=== PATIENT | male | born 1945 | race Caucasian/White ===

== ENCOUNTER 2019-04-22 15:01 | Outpatient (CLI) | payer MEDICARE, MEDICAID | END 2019-04-22 15:02 | disposition critical access hospital (66) | LOC: EMS 15:01 | PROVIDERS: ATTEND Surgery | DX: M54.9 Dorsalgia, unspecified (principal) ==

== ENCOUNTER 2019-04-22 15:10 | Emergency (ER) | payer MEDICARE, MEDICAID ==
--- NOTE | 2019-04-22 15:16 | ED Physician Documentation ---
History of Present Illness - Stated complaint Stated Complaint: BACK PX - Additonal information Additional information: This is a 74-year-old male with advanced COPD on oxygen via cannula at baseline at home who presents with back pain. Patient's pain began around 1 week ago he tried treating it with [id number] analgesics and this did not help, so he tried some tramadol which apparently was called in by his doctor, and this also was not effective. He found some Vicodin from when he had dental pain in the past and this was minimally helpful. States that the pain has improved minimally in the last 24, as he can now roll around where his previous he had to lay still, but he is unable to walk for more than a step or two due to pain. He called EMS today, EMS arrived and found him living in trailer in poor repair with holes in the floor, and no food in the trailer. Reportedly his friends bring him some food but he is very poorly mobile and there is COPD cannot get outside so he stays inside. He has pain with movement of his legs, but denies numbness or ami weakness in them. He has felt a bit constipated but denies any difficulty urinating Review of Systems Constitutional: denies: Fever Cardiac: denies: Chest pain / pressure Respiratory: reports: Other (COPD) : denies: Dysuria Musculoskeletal: reports: Back pain PD PAST MEDICAL HISTORY - Past Medical History Cardiovascular: None Respiratory: COPD Endocrine/Autoimmune: None GI: GERD, Chronic constipation, Diverticulitis : None HEENT: Other Psych: None Musculoskeletal: Osteoarthritis Derm: Other - Past Surgical History Past Surgical History: Yes HEENT: Tonsil/Adenoidectomy Derm: Skin grafts - Present Medications Home Medications: Ambulatory Orders Medication Instructions Recorded Confirmed Docusate Sodium 100Mg Capsule 100 mg PO ONCE 05/26/15 05/26/15 [Colace] Fluticasone/Salmeterol 100/50 1 each IH DAILY 05/26/15 06/05/15 [Advair 100 Mcg/50 Mcg] Polyethylene Glycol 3350 [Miralax] 17 gm PO DAILY 05/26/15 05/26/15 - Allergies Allergies/Adverse Reactions: Allergies Allergy/AdvReac Type Severity Reaction Status Date / Time iodine Allergy Unknown Verified 04/22/19 15:25 - Social History Does the pt smoke?: Yes Smoking Status: Current every day smoker Does the pt drink ETOH?: No Does the pt have substance abuse?: Yes - Immunizations Immunizations are current?: Yes - POLST Patient has POLST: No PD ED PE NORMAL - General General: Other (Obese and chronically ill-appearing male, with some tachypnea and chronic erythema of his face) - HEENT HEENT: Atraumatic - Neck Neck: Supple, no meningeal sign - Cardiac Cardiac: RRR - Respiratory Respiratory: Other (Diminished breath sounds throughout, Pursed lip breathing. No crackles.) - Abdomen Abdomen: Other (Obese, nontender To deep palpation all 4 quadrants) - Back Back: Other (There is midline tenderness palpation focally and in the region of L4-L5. No step-offs, no overlying skin changes. Patient has good range of motion of his bilateral lower extremities, 5 out of 5 strength ankle dorsiflexion and plantarflexion bilaterally, sensation intact to light touch over his lower extremities) - Neuro Neuro: Alert and oriented X 3, No motor deficit, No sensory deficit, Normal speech Results - Vitals Vitals: Oxygen O2 Source Nasal cannula - Labs Labs: Laboratory Tests 04/22/19 04/22/19 16:20 16:20 WBC 7.9 RBC 6.52 H Hgb 18.6 H Hct 57.4 H MCV 88.0 MCH 28.5 MCHC 32.4 RDW 17.6 H Plt Count 167 MPV 9.0 Neut # (Auto) 5.3 Lymph # (Auto) 1.3 L [place] # (Auto) 1.0 Eos # (Auto) 0.2 Baso # (Auto) 0.1 Absolute Nucleated RBC 0.00 Nucleated RBC % 0.0 Sodium 135 Potassium 4.1 Chloride 94 L Carbon Dioxide 31 Anion Gap 10.0 BUN 21 H Creatinine 0.9 Estimated GFR (MDRD) 82 L Glucose 101 H Calcium 9.0 Total Bilirubin 0.9 AST 17 ALT 15 Alkaline Phosphatase 54 Total Protein 6.7 Albumin 3.7 Globulin 3.0 Albumin/Globulin Ratio 1.2 Lipase 26 - Rads (name of study) CT lumbar spine WO Radiology: Other (New gas densities in the lateral left epidural space at L3-L5, with extension of the gas densities into the left foraminal space at L3-L4 and L4-L5, which may be within a vessel. Radiology read raises concern for gas through an IV, injection into the space, or infection, though there are not obvious inflammatory changes seen. MRI recommended as deemed clinically appropriate. 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 No signs of AAA. He has no history of recent instrumentation, and prior to having the scan done he did not have an IV. According to radiology, epidural abscess is in the differential, though there were not obvious signs of inflammation seen, the patient is chronically ill and may be somewhat immunosuppressed. IV was inserted labs are drawn, CBC and CMP revealing. Patient is afebrile. MRI L spine W/WO was ordered, however patient cannot fit in our MRI scanner. I called to other regional emergency departments, and [facility] also does not have the capabilities to fit patient into their scanner. [facility] [place], and confirm with the mapping technician that he will be able to fit in the scanner, patient is 345 pounds, and at his widest point including his arms he is just under 30 inches. Patient was updated and is in agreement the plan. He will be transferred via ambulance to the [place] emergency department for MRI. I did consult social work because patient is poorly mobile and limited by his COPD and reportedly does not have food available to him in is trailer other than what his friends bring him.SW they provided resources and social work called to arrange Meals on Wheels for the patient and to ensure that he has support. Departure - Departure Disposition: 02 Transfer Acute Care Hosp Clinical Impression: Back pain Qualifiers: Back pain location: low back pain Chronicity: acute Back pain laterality: midline Sciatica presence: without sciatica Qualified Code(s): M54.5 - Low back pain Condition: Stable Discharge Date/Time: 04/22/19 21:04
[2019-04-22] MEDS ORDERED: oxyCODONE 5 MG TABLET PO STA (15:36)
[2019-04-22] MEDS ORDERED: ACETAMINOPHEN 325 MG TABLET PO STA (15:36)
[2019-04-22] MEDS ORDERED: CYCLOBENZAPRINE 10 MG TABLET PO STA (15:36)
[2019-04-22 16:37] LABS: BASOPHILS # (AUTO) 0.1 10^3/uL (0.0-0.1); BASOPHILS % (AUTO) 1.1 %; EOSINOPHILS # (AUTO) 0.2 10^3/uL (0.0-0.7); EOSINOPHILS % (AUTO) 2.3 %; HGB - HEMOGLOBIN 18.6 g/dL (14.0-18.0); LYMPHOCYTES # (AUTO) 1.3 10^3/uL (1.5-3.5); LYMPHOCYTES % (AUTO) 16.4 %; MEAN CORPUSCULAR HEMOGLOBIN 28.5 pg (27.0-31.0); MEAN CORPUSCULAR HGB CONC 32.4 g/dL (32.0-36.0); MONOCYTES % (AUTO) 12.1 %; NEUTROPHILS # (AUTO) 5.3 10^3/uL (1.5-6.6); NEUTROPHILS % (AUTO) 67.3 %; PLT - PLATELET COUNT 167 10^3/uL (130-450); RED BLOOD COUNT 6.52 10^6/uL (4.70-6.10); RED CELL DISTRIBUTION WIDTH 17.6 % (12.0-15.0); WHITE BLOOD COUNT 7.9 x10^3/uL (4.8-10.8)
[2019-04-22 16:50] LABS: ALBUMIN 3.7 g/dL (3.2-5.5); ALBUMIN/GLOBULIN RATIO 1.2 (1.0-2.2); BILIRUBIN,TOTAL 0.9 mg/dL (0.2-1.0); CREATININE 0.9 mg/dL (0.6-1.2); TOTAL PROTEIN 6.7 g/dL (6.7-8.2)
--- NOTE | 2019-04-22 16:52 | CT Report ---
Reason: Severe lower back pain Procedure Date: 04/22/2019 Accession Number: [id number] / [id number] Procedure: CT - LUMBAR SPINE WO CPT Code: Final Report FULL RESULT: EXAM: CT LUMBAR SPINE WITHOUT CONTRAST EXAM DATE: 04/22/2019 03:52 PM. CLINICAL HISTORY: Severe lower back pain. Low back pain for 1 week. No known trauma. COMPARISONS: CT ABDOMEN/PELVIS W/O 08/21/2013 9:03 AM. TECHNIQUE: Thin-section axial images were acquired of the lumbar spine from T12 to S1 without contrast. Post-processing: Coronal and sagittal reformats. Other: None. In accordance with CT protocol optimization, one or more of the following dose reduction techniques were utilized for this exam: automated exposure control, adjustment of mA and/or KV based on patient size, or use of iterative reconstructive technique. FINDINGS: Without the use of intrathecal contrast, the evaluation of the degree of central and foraminal stenosis is somewhat limited. There is a grade 1 anterolisthesis of L5 on S1 secondary to bilateral pars interarticularis defects of L5. There is gas disk vacuum phenomenon demonstrated within the L5-S1 intervertebral disk space. There is extension of gas densities within the anterior left lateral epidural space from L3 through L4-L5. There is a lesser degree within the right lateral recess at the L4-L5 level. There were no gas densities present at this location on the previous CT of the abdomen and pelvis. There is extension of the gas densities into the left foraminal space at L4-L5 and L3-L4. Recommend correlation for any recent facet or foraminal injection. This could potentially represent gas within a vessel that was introduced with placement of an IV. There is minimal atelectasis demonstrated at the lung bases. There is mild calcific plaquing of the abdominal aorta and the proximal common iliac arteries. There is moderate left and mild to moderate right paraspinal atrophy. Overall there has been significant progression of the atrophy since the 2013 exam. The kidneys are without evidence of hydronephrosis. There is a 13 degree levoscoliosis of the lumbar spine with the apex at L3. The sacroiliac joints are normal in appearance. Axial images: T10-T11: There is no significant disk bulge, central or foraminal stenosis. The facets are normal. T11-T12: There is no significant disk bulge, central or foraminal stenosis. The facets are normal. T12-L1: There is no significant disk bulge, central or foraminal stenosis. The facets are normal. L1-L2: There is a left foraminal space protrusion of the disk producing mild narrowing of the left neural foramen. There is no significant central canal stenosis. L2-L3: There is a left foraminal space protrusion of the disk producing a mild left foraminal stenosis. There is no significant central canal stenosis. The facets are normal. L3-L4: There is a small disk osteophyte complex producing a mild central canal stenosis. There is moderate narrowing of the right neural foramen. There is mild narrowing of the left neural foramen. There is no significant change at this level. L4-L5: There is a broad-based disk osteophyte complex producing a mild central canal stenosis. There is mild to moderate narrowing of the right neural foramen. The facets are normal. There is moderate narrowing of the left neural foramen. There is no significant change at this level. L5-S1: There is a grade 1 anterolisthesis of L5 on S1. There are bilateral pars interarticularis defects of L5. There is a small disk osteophyte complex suggested abutting the sac without significant central canal stenosis. There are moderate to severe right and left foraminal stenoses. Recommend correlation for L5 radicular symptoms. There is no significant change at this level. IMPRESSION: 1. There are new gas densities demonstrated in the lateral left epidural space at the L3-L5 levels. There is extension of the gas densities into the left foraminal space at L3-L4 and L4-L5. These may potentially be within a vessel and were introduced with placement of an IV. Other etiologies which could produce gas densities at this location would include recent injection of either facet or foraminal space. Recommend correlation for any such history. A gas producing organism is not entirely excluded but overall less likely given the lack of significant inflammatory or infectious changes. However, if clinically there is suspicion of infection of the lumbar spine then further evaluation can be obtained with MRI of the lumbar spine without and with contrast as deemed clinically appropriate. 2. There is an unchanged mild central canal stenosis from a broad-based disk osteophyte complex at L4-L5. There is mild to moderate right and moderate left foraminal stenoses. 3. There are bilateral pars interarticularis defects of L5. There is a grade 1 anterolisthesis of L5 on S1. There is an unchanged moderate to severe degree of bilateral foraminal stenoses which may potentially produce L5 radicular symptoms. 4. There is a 13 degree levoscoliosis of the lumbar spine with the apex at L3.
[2019-04-22] MEDS ORDERED: MORPHINE 2 MG/ML CARPUJECT IVP STA ×2 (17:44→20:48)
[2019-04-22] MEDS ORDERED: ALBUTEROL NEB 2.5 MG/3 ML INH STA (17:44)
[2019-04-22 20:54] VITALS: BP 138/101
== END 2019-04-22 21:04 | disposition short-term general hospital (02) ==
LOC: EDUNIT# → ED 15:10
DX: M54.5 Low back pain (principal); M48.061 Spinal stenosis, lumbar region without neurogenic claudication; M41.86 Other forms of scoliosis, lumbar region; E66.9 Obesity, unspecified; Z68.42 Body mass index [BMI] 45.0-49.9, adult; J44.9 Chronic obstructive pulmonary disease, unspecified; Z99.81 Dependence on supplemental oxygen; F17.200 Nicotine dependence, unspecified, uncomplicated
CPT/HCPCS: 36415; 72131; 80053; 83690; 85025; 96374; 96376; 99284; 99285; A9270

== ENCOUNTER 2019-04-22 22:23 | Outpatient (CLI) | payer MEDICARE, MEDICAID | END 2019-04-22 22:24 | disposition short-term general hospital (02) | LOC: EMS 22:23 | PROVIDERS: ATTEND Surgery | DX: M54.5 Low back pain (principal); R93.89 Abnormal findings on diagnostic imaging of other specified body structures | CPT/HCPCS: A0425; A0428; A0429 ==

== ENCOUNTER 2019-05-02 12:56 | Outpatient (CLI) | payer MEDICARE, MEDICAID | END 2019-05-02 12:57 | disposition EMS.NT | LOC: EMS 12:56 | PROVIDERS: ATTEND Surgery | DX: M54.9 Dorsalgia, unspecified (principal) ==

== ENCOUNTER 2019-05-02 17:26 | Outpatient (CLI) | payer MEDICARE, MEDICAID | END 2019-05-02 17:27 | disposition EMS.NT | LOC: EMS 17:26 | PROVIDERS: ATTEND Surgery | DX: R06.02 Shortness of breath (principal); F32.9 Major depressive disorder, single episode, unspecified ==

== ENCOUNTER 2020-01-14 16:45 | Outpatient (CLI) | payer MEDICARE, MEDICAID | END 2020-01-14 16:46 | disposition home or self-care (01) | LOC: COV 16:45 | PROVIDERS: ATTEND Family Medicine | DX: R05 Cough (principal); R06.02 Shortness of breath; M79.10 Myalgia, unspecified site; R53.83 Other fatigue; J02.9 Acute pharyngitis, unspecified; R09.81 Nasal congestion; Z20.828 Contact with and (suspected) exposure to other viral communicable diseases ==

== ENCOUNTER 2020-06-24 09:31 | Outpatient (CLI) | payer MEDICARE, MEDICAID | END 2020-06-24 09:32 | disposition EMS.NT | LOC: EMS 09:31 | PROVIDERS: ATTEND Surgery | DX: R06.02 Shortness of breath (principal) ==

== ENCOUNTER 2022-04-08 09:43 | Emergency (ER) | payer MEDICARE, MEDICAID ==
[2022-04-08] MEDS ORDERED: IPRATROPIUM/ALBUTEROL 3 ML NEB INH STA (10:21)
--- NOTE | 2022-04-08 10:23 | ED Physician Documentation ---
PD HPI DYSPNEA - Stated complaint Stated Complaint: SOA,FATIGUE - Chief complaint Chief Complaint: Resp - History obtained from History obtained from: Patient - Additional information Additional information: 77-year-old gentleman with history of COPD on as needed oxygen at home presents with profound fatigue over the last few weeks. He states that starting about 3 weeks ago he started just sleeping all the time and feeling that he could never get any rest. More acutely over the last few days to week he is felt like he has had an increased oxygen requirement with increased dyspnea on exertion. He notes room air sats at home of 88 or so which come up well on his home oxygen to the mid 90s. He does not have a cough but he is producing thick sputum. Denies fevers. He has occasional "heartburn" but no chest pain per se. He has some chronic pedal edema which has not changed over usual. Review of Systems Ten Systems: 10 systems reviewed and negative Constitutional: reports: Fatigue. denies: Fever, Chills Cardiac: denies: Chest pain / pressure, Palpitations Respiratory: reports: Dyspnea, Wheezing PD PAST MEDICAL HISTORY - Past Medical History Cardiovascular: None Respiratory: COPD Neuro: None Endocrine/Autoimmune: None GI: GERD, Chronic constipation, Diverticulitis : None HEENT: Other Psych: None Musculoskeletal: Osteoarthritis Derm: Other - Past Surgical History Past Surgical History: Yes HEENT: Tonsil/Adenoidectomy Derm: Skin grafts - Present Medications Home Medications: Ambulatory Orders Medication Instructions Recorded Confirmed Docusate Sodium 100Mg Capsule 100 mg PO ONCE 05/26/15 05/26/15 [Colace] Fluticasone/Salmeterol 100/50 1 each IH DAILY 05/26/15 06/05/15 [Advair 100 Mcg/50 Mcg] polyethylene glycoL 3350 [Miralax] 17 gm PO DAILY 05/26/15 05/26/15 Azithromycin [Zithromax] 1 tab PO DAILY #4 tab 04/08/22 predniSONE [Deltasone] 20 mg PO [id number] #21 tab 04/08/22 - Allergies Allergies/Adverse Reactions: Allergies Allergy/AdvReac Type Severity Reaction Status Date / Time iodine Allergy Unknown Verified 04/08/22 10:07 - Social History Does the pt smoke?: Yes Smoking Status: Current every day smoker Does the pt drink ETOH?: No Does the pt have substance abuse?: Yes - Immunizations Immunizations are current?: Yes - POLST Patient has POLST: No PD ED PE NORMAL - Vitals Vital signs reviewed: Yes - General General: Alert and oriented X 3, Other (Mild tachypnea, speaking in full sentences though, smells of tobacco.) - HEENT HEENT: PERRL, EOMI - Neck Neck: Supple, no meningeal sign, No bony TTP - Cardiac Cardiac: RRR, No murmur - Respiratory Respiratory: Other (Rhonchorous and wheezy throughout without other focal findings, mild tachypnea.) - Abdomen Abdomen: Non tender - Back Back: No CVA TTP, No spinal TTP - Derm Derm: Normal color, Warm and dry - Extremities Extremities: Other (2+ pitting pedal edema, symmetric without cellulitis) - Neuro Neuro: Alert and oriented X 3, Normal speech Results - Vitals Vitals: Vital Signs - 24 hr 04/08/22 04/08/22 10:01 10:43 Temperature 36.5 C Heart Rate 101 H 92 Respiratory 24 22 Rate Blood Pressure 129/84 H O2 Saturation 88 L If not protocol 4.5 : Oxygen Flow, liters/minute Oxygen O2 Source Nasal cannula - EKG (time done) 1031 Rate: Rate (enter#) (95) Rhythm: Atrial fibrillation Intervals: Prolonged QT, Other (lafb) QRS: Normal Ischemia: Non specific changes. No: ST elevation c/w ischemia, ST depression - Labs Labs: Laboratory Tests 04/08/22 04/08/22 04/08/22 10:30 10:30 10:30 WBC 7.2 RBC 5.76 Hgb 16.5 Hct 53.9 H MCV 93.6 MCH 28.6 MCHC 30.6 L RDW 14.7 Plt Count 180 MPV 9.4 Neut # (Auto) 5.0 Lymph # (Auto) 1.2 L [place] # (Auto) 0.7 Eos # (Auto) 0.1 Baso # (Auto) 0.1 Absolute Nucleated RBC 0.00 Nucleated RBC % 0.0 VBG pH 7.342 VBG pCO2 62.8 H VBG pO2 40.4 VBG HCO3 33.3 H VBG Total CO2 35.2 H VBG O2 Saturation 78.7 VBG Base Excess 4.9 H Sodium 136 Potassium 4.9 Chloride 94 L Carbon Dioxide 32 Anion Gap 10.0 BUN 16 Creatinine 0.7 Estimated GFR (MDRD) 109 Glucose 102 H Calcium 9.3 Magnesium 1.9 Total Bilirubin 0.6 AST 19 ALT 15 Alkaline Phosphatase 57 Troponin I High Sens B-Natriuretic Peptide Total Protein 7.4 Albumin 3.8 Globulin 3.6 Albumin/Globulin Ratio 1.1 04/08/22 04/08/22 10:30 11:00 WBC RBC Hgb Hct MCV MCH MCHC RDW Plt Count MPV Neut # (Auto) Lymph # (Auto) [place] # (Auto) Eos # (Auto) Baso # (Auto) Absolute Nucleated RBC Nucleated RBC % VBG pH VBG pCO2 VBG pO2 VBG HCO3 VBG Total CO2 VBG O2 Saturation VBG Base Excess Sodium Potassium Chloride Carbon Dioxide Anion Gap BUN Creatinine Estimated GFR (MDRD) Glucose Calcium Magnesium Total Bilirubin AST ALT Alkaline Phosphatase Troponin I High Sens 12.7 B-Natriuretic Peptide 98 Total Protein Albumin Globulin Albumin/Globulin Ratio - Rads (name of study) 1v CXR Radiology: EMP read contemporaneously (Persistent hyperinflation with bibasilar opacities favoring atalectasis vs less likely pna) PD MEDICAL DECISION MAKING - ED course ED course: 77-year-old gentleman who has pretty bad COPD at baseline presents with an appa rent exacerbation with fatigue and minimal cough but productive sputum. He was feeling better after a DuoNeb here. He has some borderline oximetries but this is usually when he is not on his oxygen. On oxygen he has been around 95%. He request discharge. He is been on Zithromax before and would like to use this again as it works well for him. Departure - Departure Disposition: 01 Home, Self Care Clinical Impression: Moderate COPD (chronic obstructive pulmonary disease) Condition: Good Record reviewed to determine appropriate education?: Yes Instructions: COPD Dc Prescriptions: predniSONE [Deltasone] 20 mg PO [id number] #21 tab Azithromycin [Zithromax] 1 tab PO DAILY #4 tab Comments: I sent your prescriptions electronically to the [facility] pharmacy at the [facility] of [facility] [address] [facility] in [place]. Return if worse, follow-up with your doctor next week for recheck.
[2022-04-08 10:40] LABS: VBG HCO3 33.3 mmol/L (23-28); VBG PCO2 62.8 mmHg (41-51); VBG PH 7.342 (7.31-7.41); VBG PO2 40.4 mmHg (25-47)
[2022-04-08 10:41] LABS: BASOPHILS # (AUTO) 0.1 10^3/uL (0.0-0.1); BASOPHILS % (AUTO) 1.1 %; EOSINOPHILS # (AUTO) 0.1 10^3/uL (0.0-0.7); EOSINOPHILS % (AUTO) 1.7 %; HCT - HEMATOCRIT 53.9 % (42.0-52.0); HGB - HEMOGLOBIN 16.5 g/dL (14.0-18.0); LYMPHOCYTES # (AUTO) 1.2 10^3/uL (1.5-3.5); LYMPHOCYTES % (AUTO) 16.6 %; MEAN CORPUSCULAR HEMOGLOBIN 28.6 pg (27.0-31.0); MEAN CORPUSCULAR HGB CONC 30.6 g/dL (32.0-36.0); MEAN CORPUSCULAR VOLUME 93.6 fL (80.0-94.0); MEAN PLATELET VOLUME 9.4 fL (7.4-11.4); MONOCYTES # (AUTO) 0.7 10^3/uL (0.0-1.0); MONOCYTES % (AUTO) 10.3 %; NEUTROPHILS % (AUTO) 69.7 %; PLT - PLATELET COUNT 180 10^3/uL (130-450); RED BLOOD COUNT 5.76 10^6/uL (4.70-6.10); RED CELL DISTRIBUTION WIDTH 14.7 % (12.0-15.0); VBG BASE EXCESS 4.9 mmol/L (-2 - +2); VBG OXYGEN SATURATION 78.7 % (60-80); VBG TOTAL CO2 35.2 mmol/L (24-29); WHITE BLOOD COUNT 7.2 x10^3/uL (4.8-10.8)
[2022-04-08 10:57] LABS: ALBUMIN 3.8 g/dL (3.2-5.5); ALBUMIN/GLOBULIN RATIO 1.1 (1.0-2.2); BILIRUBIN,TOTAL 0.6 mg/dL (0.2-1.0); CALCIUM 9.3 mg/dL (8.5-10.3); CREATININE 0.7 mg/dL (0.6-1.2); MAGNESIUM 1.9 mg/dL (1.7-2.8); POTASSIUM 4.9 mmol/L (3.5-5.0); TOTAL PROTEIN 7.4 g/dL (6.7-8.2)
--- NOTE | 2022-04-08 10:58 | XRAY Report ---
PROCEDURE: Chest 1 View X-Ray INDICATIONS: dyspnea, cough TECHNIQUE: One view of the chest was acquired. COMPARISON: 05/28/2013. FINDINGS: Surgical changes and devices: None. Lungs and pleura: Diffuse interstitial prominence. Streaky bibasilar opacities more pronounced on th e right. No substantial pleural effusion or pneumothorax seen. Persistent hyperinflation and flatteni ng of the hemidiaphragms. Mediastinum: Mediastinal contours appear normal. Heart size is normal. Bones and chest wall: No suspicious bony lesions. Overlying soft tissues appear unremarkable. IMPRESSION: Persistent hyperinflation and flattening of the hemidiaphragms with chronic appearing interstitial pr ominence. Findings likely related to sequela chronic obstructive pulmonary physiology. Streaky bibasi lar opacities favored to represent atelectasis. Early developing pneumonia not excluded if clinically appropriate. Reviewed by: Cristobal Condon MD on 04/08/2022 10:57 AM PST Approved by: Cristobal Condon MD on 04/08/2022 10:57 AM PST Station ID: [id number]
[2022-04-08] MEDS ORDERED: AZITHROMYCIN 250 MG TABLET PO STA (11:33)
[2022-04-08] MEDS ORDERED: predniSONE 20 MG TABLET PO STA (11:34)
[2022-04-08 12:10] VITALS: BP 114/88
[2022-04-08 12:23] LABS: B. PARAPERTUSSIS- RESP PCR PAN NOT DETECTED; B. PERTUSSIS- RESP PCR PANEL NOT DETECTED; C. PNEUMONIAE- RESP PCR PANEL NOT DETECTED; CORONAVIRUS 229E-RESP PCR NOT DETECTED; CORONAVIRUS HKU1-RESP PCR NOT DETECTED; CORONAVIRUS NL63-RESP PCR NOT DETECTED; CORONAVIRUS OC43-RESP PCR NOT DETECTED; HUMAN METAPNEUMOVIRUS NOT DETECTED; INFLUENZA A- RESP PCR PANEL NOT DETECTED; INFLUENZA B - RESP PCR PANEL NOT DETECTED; M. PNEUMONIAE- RESP PCR PANEL NOT DETECTED; PARAINFLUENZA VIRUS 1 NOT DETECTED; PARAINFLUENZA VIRUS 2 NOT DETECTED; PARAINFLUENZA VIRUS 3 NOT DETECTED; PARAINFLUENZA VIRUS 4 NOT DETECTED; RHINOVIRUS/ENTEROVIRUS NOT DETECTED; RSV- RESP PCR PANEL NOT DETECTED; SARS-CoV-2 -RESP PCR PANEL NOT DETECTED
== END 2022-04-08 12:10 | disposition home or self-care (01) ==
LOC: ED 09:43
DX: J44.9 Chronic obstructive pulmonary disease, unspecified (principal); Z99.81 Dependence on supplemental oxygen; F17.200 Nicotine dependence, unspecified, uncomplicated; Z20.822 Contact with and (suspected) exposure to COVID-19
CPT/HCPCS: 36415; 71045; 80053; 82803; 83735; 83880; 84484; 85025; 87633; 93005; 94640; 94664; 99284; A9270; J7512

== ENCOUNTER 2022-04-27 09:16 | Outpatient (CLI) | payer MEDICARE, MEDICAID | END 2022-04-27 09:18 | disposition E | LOC: EMS 09:16 ==